=== PATIENT | male | born 1945 | race Caucasian/White ===

== ENCOUNTER 2016-12-17 21:42 | Emergency (ER) | payer MEDICARE, BC ==
[2016-12-17] MEDS ORDERED: LIDOCAINE VIS-MYLANTA 30 ML UD PO ONE ×2 (22:00→22:08)
[2016-12-17] MEDS ORDERED: ONDANSETRON INJ 4 MG/2 ML VIAL IV ONE (22:34)
[2016-12-17] MEDS ORDERED: HYDROmorphone HCL INJ 2 MG/ML VIAL IV ONE (22:54)
[2016-12-17] MEDS ORDERED: HYDROmorphone HCL INJ 2 MG/ML VIAL ONE (22:54)
[2016-12-17] MEDS ORDERED: SODIUM CHLORIDE 0.9% 1000ML 1,000 ML IVS ONE (23:24)
[2016-12-18] MEDS ORDERED: PANTOPRAZOLE SODIUM IV 40 MG VIAL IV ONE (01:09)
[2016-12-18] MEDS ORDERED: MAGNESIUM SULFATE PREMIX 2GM 2 GM in PREMIX BAG 1 BAG IVPB ONE (01:09)
[2016-12-18] MEDS ORDERED: MAGNESIUM SULFATE PREMIX 2GM 50 ML IVPB ONE (01:12)
[2016-12-18] MEDS ORDERED: SODIUM CHLORIDE 0.9% 10 ML VIAL ONE (01:13)
--- NOTE | 2016-12-18 01:47 | ED.PDOC ---
History of Present Illness - General Chief Complaint: Abdominal Pain Stated Complaint: epigastric pain Time Seen by Provider: 12/17/16 22:15 Source: patient, RN notes reviewed, Vital Signs reviewed Exam Limitations: no limitations - History of Present Illness Initial Comments: Patient is a 71 y/o male who started having epigastric pain at 1700. The pain continued to get worse as he travelled on his motorcycle until he had to stop. He was also having dry heaves since that time. The pain is severe, sharp. Patient has a history of gastric ulcer as well as DMII, HTN, and CKD. Nothing makes the pain better or worse. Timing/Duration: 4-6 hours Severity: severe Improving Factors: nothing Worsening Factors: nothing Associated Symptoms: diaphoresis, loss of appetite, nausea/vomiting Allergies/Adverse Reactions: Allergies Penicillins Allergy (Verified 12/17/16 22:07) Home Medications: Ambulatory Orders Glipizide 12/17/16 Gemfibrozil 600 mg PO 12/18/16 Losartan Potassium & Hydrochlo [Losartan Potassium/Hydroc 100-25 mg] 1 tab PO Meloxicam 15 mg PO 12/18/16 Metoprolol Succinate [Metoprolol Succinate ER] 100 mg PO 12/18/16 Omeprazole 20 mg PO 12/18/16 Pioglitazone HCl 30 mg PO 12/18/16 Thyroid [Nature-Throid] 130 mg PO DAILY 12/18/16 Review of Systems - Review of Systems Constitutional: States: no symptoms reported. Denies: chills, fever EENTM: States: no symptoms reported Respiratory: States: no symptoms reported Cardiology: States: no symptoms reported Gastrointestinal/Abdominal: States: abdominal pain, nausea, vomiting Genitourinary: States: no symptoms reported Musculoskeletal: States: no symptoms reported Skin: States: no symptoms reported Neurological: States: no symptoms reported Endocrine: States: no symptoms reported Hematologic/Lymphatic: States: no symptoms reported All other Systems: Reviewed and Negative Past Medical History (General) - Patient Medical History Hx Diabetes: Yes Hx Gastroesophageal Reflux: Yes - Vaccination History Hx Influenza Vaccination: Yes Family Medical History - Family History Father Family History: Unknown Physical Exam - Physical Exam General Appearance: Alert, Obvious distress - Patient vomiting when initially seen. Ears, Nose, Throat: hearing grossly normal, normal ENT inspection Respiratory: lungs clear, normal breath sounds, no respiratory distress, no accessory muscle use Cardiovascular/Chest: normal peripheral pulses, regular rate, rhythm, no edema, no gallop, no murmur Gastrointestinal/Abdominal: normal bowel sounds, soft, no organomegaly, no pulsatile mass, tenderness - epigastric Back Exam: no CVA tenderness Extremity: non-tender, no pedal edema Neurologic: alert, normal mood/affect, oriented x 3 Skin Exam: normal color, warm/dry Progress - Progress Progress: 12/18/16 04:37 Patient's epigastric pain is most likely due to an ulcer. After discussing options with his family, they would like to go home (which is 4 hours away) and follow up with Patient's PCP today. Therefore, I will give him 1 mg of Dilaudid and 4mg of Zofran which should hold him until he gets home. - Results/Orders Results/Orders: 12/17/16 12/17/16 12/18/16 22:04 23:00 00:11 Temperature 97.9 F Pulse Rate [ 77 78 68 Right] Respiratory 22 14 16 Rate Blood Pressure 195/82 182/58 181/75 [Right Arm] O2 Sat by Pulse 97 90 L 96 Oximetry 12/18/16 12/18/16 12/18/16 00:50 01:50 02:41 Temperature 98.2 F Pulse Rate [ 75 77 82 Right] Respiratory 16 18 14 Rate Blood Pressure 177/82 178/89 189/90 [Right Arm] O2 Sat by Pulse 96 95 94 L Oximetry 12/18/16 03:49 Temperature Pulse Rate [ 90 Right] Respiratory 16 Rate Blood Pressure 185/90 [Right Arm] O2 Sat by Pulse 92 L Oximetry 12/17/16 22:30 EKG STAT 12/18/16 02:00 Hold Metformin x 48Hrs [id number] Laboratory Results WBC 10.7 K/mm3 (4.8-10.8) 12/17/16 22:27 RBC 4.63 M/mm3 (4.70-6.10) L 12/17/16 22:27 Hgb 14.4 gm/dL (14.0-18.0) 12/17/16 22:27 Hct 42.6 % (42.0-52.0) 12/17/16 22:27 MCV 91.9 fl (80.0-94.0) 12/17/16 22:27 MCH 31.1 pg (27.0-31.0) H 12/17/16 22: MCHC 33.8 g/dL (33.0-37.0) 12/17/16: RDW 13.6 % (11.5-14.5) 12/17/16 22: Plt Count 170 K/mm3 (130-400) 12/17/16 22: MPV 7.9 fl (7.40-10.4) 12/17/16: Absolute Neuts (auto) 8.30 K/uL (1.8-6.8) H 12/17/16: Absolute Lymphs (auto) 1.40 K/uL (1.0-3.4) 12/17/16: Absolute Monos (auto) 0.90 K/uL (0.2-0.8) H 12/17/16: Absolute Eos (auto) 0.10 K/uL (0.0-0.4) 12/17/16: Absolute Basos (auto) 0.00 K/uL (0.0-0.1) 12/17/16: Neutrophils % 77.3 % (42.0-78.0) 12/17/16: Lymphocytes % 13.1 % (20.0-50.0) L 12/17/16: Monocytes % 8.2 % (2.0-9.0) 12/17/16: Eosinophils % 1.0 % (1.0-5.0) 12/17/16: Basophils % 0.4 % (0.0-2.0) 12/17/16 22: PT 11.6 SECONDS (9.4-12.5) 12/17/16: INR 1.030 12/17/16: PTT (SP) 35.1 SECONDS (25.1-36.5) 12/17/16: Sodium 136 mmol/L (135-145) 12/17/16: Potassium 4.0 mmol/L (3.6-5.0) 12/17/16: Chloride 102 mmol/L (101-111) 12/17/16: Carbon Dioxide 28 mmol/L (21-31) 12/17/16 22:27 Anion Gap 10.0 (12-18) L 12/17/16 22:27 BUN 30 mg/dL (7-18) H 12/17/16 22:27 Creatinine 1.47 mg/dL (0.6-1.3) H 12/17/16 22:27 BUN/Creatinine Ratio 20.4 (10-20) H 12/17/16 22:27 Random Glucose 186 mg/dL (70-105) H 12/17/16 22:27 Serum Osmolality 283.0 mOsm/L (275-295) 12/17/16 22:27 Calcium 9.7 mg/dL (8.4-10.2) 12/17/16 22:27 Magnesium 1.5 mg/dL (1.8-2.5) L 12/17/16 22:27 Total Bilirubin 0.7 mg/dL (0.2-1.0) 12/17/16 22:27 AST 26 IU/L (10-42) 12/17/16 22:27 ALT 21 IU/L (10-60) 12/17/16 22:27 Alkaline Phosphatase 65 IU/L (42-121) 12/17/16 22:27 Creatine Kinase 439 IU/L (38-174) H* 12/18/16 01:20 CK-MB (CK-2) 5.2 ng/mL (0.0-4.4) H* 12/18/16 01:20 CK-MB (CK-2) % 1.18 % (0.0-3.5) 12/18/16 01:20 Troponin I < 0.02 ng/mL (0.01-0.05) 12/18/16 01:20 Serum Total Protein 8.1 gm/dL (6.4-8.2) 12/17/16 22:27 Albumin 4.4 g/dl (3.2-5.5) 12/17/16 22:27 Globulin 3.7 gm/dL (2.3-3.5) H 12/17/16 22:27 Albumin/Globulin Ratio 1.2 (1.1-1.9) 12/17/16 22:27 Lipase 42 U/L (22-51) 12/17/16 22:27 Urine Color Yellow (Yellow) 12/17/16 23:04 Urine Appearance Clear (Clear) 12/17/16 23:04 Urine pH 5.0 (4.5-7.8) 12/17/16 23:04 Ur Specific Hoffman 1.025 (1.005-1.030) 12/17/16 23:04 Urine Protein 30 mg/dL 12/17/16 23:04 Urine Glucose (UA) 100 mg/dL (Negative) H 12/17/16 23:04 Urine Ketones Negative mg/dL (NEGATIVE) 12/17/16 23:04 Urine Blood Small (Negative) H 12/17/16 23:04 Urine Nitrite Negative 12/17/16 23:04 Urine Bilirubin Negative (NEGATIVE) 12/17/16 23:04 Urine Urobilinogen 0.2 mg/dL (0.2-1.0) 12/17/16 23:04 Ur Leukocyte Esterase Negative (Negative) 12/17/16 23:04 Urine RBC 0-1 /hpf 12/17/16 23:04 Urine WBC 0 /hpf 12/17/16 23:04 Ur Epithelial Cells 0 /hpf 12/17/16 23:04 Urine Bacteria 0 12/17/16 23:04 - EKG/XRAY/CT EKG: Sinus - 80 bpm, no ST T wave changes Comments: NML axis, NML Intervals, No comparison, NSR CT: Abd/Pelv - Unremarkable CT Ordered: Yes CT Interpretation Call Back: No - Report sent Departure - Departure Clinical Impression: Hypomagnesemia Abdominal pain Qualifiers: Abdominal location: epigastric Qualifier Code: (R10.13) Epigastric pain Time of Disposition: 04:40 Disposition: Discharge to Home or Self Care Condition: Good Departure Forms: ED Discharge - Pt. Copy, Patient Portal Self Enrollment Instructions: DI for Abdominal Pain-Adult Diet: full liquid diet Home Medications: Ambulatory Orders Glipizide 12/17/16 Gemfibrozil 600 mg PO 12/18/16 Losartan Potassium & Hydrochlo [Losartan Potassium/Hydroc 100-25 mg] 1 tab PO Meloxicam 15 mg PO 12/18/16 Metoprolol Succinate [Metoprolol Succinate ER] 100 mg PO 12/18/16 Omeprazole 20 mg PO 12/18/16 Pioglitazone HCl 30 mg PO 12/18/16 Thyroid [Nature-Throid] 130 mg PO DAILY 12/18/16 Additional Instructions: Follow up with PCP TODAY. Stop in nearest ED or call 911 if symptoms worsen in any way.
--- NOTE | 2016-12-18 03:45 | CT ---
EXAM: CT abdomen and pelvis with contrast. INDICATION: Abdominal pain, acute. TECHNIQUE: Contiguous axial CT images of the abdomen and pelvis.Intravenous contrast: Present.Oral contrast: Absent.DLP 796 mGy-cm. COMPARISON: None. FINDINGS: Lower chest: Partially imaged.Lung bases: Unremarkable. Cardiac apex: Unremarkable. Solid abdominal viscera:Liver: Unremarkable. Gallbladder: Unremarkable.Pancreas: Unremarkable. Spleen: Unremarkable. Adrenal glands: Unremarkable. Right kidney: No hydronephrosis.Left kidney: No hydronephrosis.Urinary bladder: Unremarkable. Abdominal aorta: Unremarkable. Peritoneal:Free fluid: None.Free air: None. Other: No pathologic sized lymph nodes in the upper abdomen. Bowel:Stomach: Unremarkable. Small bowel: Unremarkable. Appendix: Unremarkable. Colon: Diverticulosis is noted without evidence of diverticulitis Rectum: Unremarkable. Prostate: Unremarkable. Bones: Unremarkable. IMPRESSION: 1. No CT evidence of acute process of the abdomen. Electronically signed by: Tian Spencer MD 12/18/2016 2:46 AM [employer]ICE [employer]
[2016-12-18] MEDS ORDERED: LIDOCAINE VIS-MYLANTA 30 ML UD PO ONE (03:58)
[2016-12-18] MEDS ORDERED: ONDANSETRON INJ 4 MG/2 ML VIAL IV ONE (04:36)
[2016-12-18] MEDS ORDERED: HYDROmorphone HCL INJ 2 MG/ML VIAL IV ONE (04:36)
[2016-12-18 04:58] VITALS: BP 163/87; TEMP 98.8; O2SAT 94
== END 2016-12-18 04:57 | disposition home or self-care (01) ==
LOC: ER 21:42
DX: E83.42 Hypomagnesemia (principal); R10.13 Epigastric pain; Z88.0 Allergy status to penicillin; Z79.899 Other long term (current) drug therapy; E11.9 Type 2 diabetes mellitus without complications; K21.9 Gastro-esophageal reflux disease without esophagitis
CPT/HCPCS: 36415; 74177; 80048; 80053; 81001; 82550; 82553; 83690; 84484; 85025; 85610; 85730; 93005; J1170; J2405; J3475; J7030